=== PATIENT | female | born 1940 | race Caucasian/White ===

== ENCOUNTER → 2017-01-26 | Outpatient (CLI) | payer MEDICARE, OTHER ==
[~2017-01-26] MED LIST: ASPI-557 PO; CALC-946 PO; CALC600T12; CYAN10009 PO; ENOX40DI SQ; FOLI1TAB15 PO; HYDR25TA85 PO; KRIL1CAP18; LABE100T PO; LEVO112T7 PO; MAGN400T6 PO; METH2.5T6 PO; OXYC5TAB84 PO; POTA20TA10 PO; PRED20TA PO; TRIA15OI2 TOP
[2017-01-26 09:22] LABS: ALBUMIN/GLOBULIN RATIO 1.3 RATIO (1.1-2.2); ALKALINE PHOSPHATASE 86 U/L (38-126); ALT (SGPT) 34 U/L (9-52); ANION GAP 13 MEQ/L (5-15); AST (SGOT) 24 U/L (14-36); BUN/CREATININE RATIO 26 RATIO (6-26); CALCIUM 9.4 MG/DL (8.4-10.2); CHLORIDE 103 MEQ/L (98-107); CO2 - CARBON DIOXIDE 29 MEQ/L (22-30); CREATININE 0.9 MG/DL (0.7-1.2); GLOMERULAR FILTRATION RATE 61; GLUCOSE 129 MG/DL (65-110); LDH 393 U/L (313-618); POTASSIUM 3.7 MEQ/L (3.6-5); SODIUM 145 MEQ/L (134-144)
[2017-01-26 09:28] LABS: ABSOLUTE RETICS # 0.0447 T/MM3 (0.0300-0.0900); BASOPHILS % (AUTO) 0.2 % (0-2); EOSINOPHILS # (AUTO) 0.1 T/MM3 (0-0.5); EOSINOPHILS % (AUTO) 0.6 % (0-4); HCT - HEMATOCRIT 42.4 % (36-46); HGB - HEMOGLOBIN 13.6 GM/DL (12-16); IMMATURE GRANULOCYTE # (AUTO) 0.04 T/MM3 (0.00-0.03); IMMATURE GRANULOCYTE % (AUTO) 0.3 % (0.0-0.5); LYMPHOCYTES # (AUTO) 2.4 T/MM3 (1-4.8); LYMPHOCYTES % (AUTO) 18.7 % (23-45); MEAN CORPUSCULAR HGB 30.4 UUG (26-34); MEAN CORPUSCULAR HGB CONC(MCHC 32.1 GM/DL (31-37); MEAN CORPUSCULAR VOLUME 94.9 UM3 (80-100); MEAN PLATELET VOLUME 10.1 UM3 (9.4-12.4); MONOCYTES # (AUTO) 1.2 T/MM3 (0-0.8); MONOCYTES % (AUTO) 9.1 % (0-9.0); NEUTROPHILS #(AUTO)-ABSOLUTE 9.3 T/MM3 (1.8-7.7); NEUTROPHILS % (AUTO) 71.1 % (33-66); RED BLOOD COUNT 4.47 M/MM3 (4.00-5.20); RETICULOCYTE HGB 35.9 PG (30.8-36.6)
[2017-01-27 03:41] LABS: FERRITIN 31.6 NG/ML (11-264)
== END ==
LOC: LAB 08:54
PROVIDERS: ATTEND Internal Medicine Hematology & Oncology
DX: D72.828 Other elevated white blood cell count (principal); D64.9 Anemia, unspecified; M06.9 Rheumatoid arthritis, unspecified
CPT/HCPCS: 36415; 80053; 82607; 82668; 82728; 83010; 83540; 83615; 83921; 85025; 85045